=== PATIENT | female | born 1950 | race Caucasian/White ===

== ENCOUNTER 2017-10-15 16:03 | Observation (INO) ==
[2017-10-15] MEDS ORDERED: Piperacillin/Tazobactam 3.375 GM in D5% in Water (Mini-Bag+) 100 ML IVPB ONE (21:35)
--- NOTE | 2017-10-15 21:38 | Emergency Department Note ---
Disposition Clinical Impression: Cellulitis Qualifiers: Site of cellulitis: unspecified site Qualified Code(s): L03.90 - Cellulitis, unspecified Disposition: Admitted As Inpatient Condition: Good Referrals: NONE,PCP [Primary Care Provider] - Forms: ED Satisfaction Letter, Work/School Release Time of Disposition: 23:15 General Adult HPI - General Chief complaint: ED General Medical Stated complaint: "cellulitis PCD wants IV antibotics" Time Seen by Provider: 10/15/17 19:29 Source: patient Limitations: no limitations Nursing Notes Reviewed: Yes Vital Signs Reviewed: Yes - History of Present Illness HPI Narrative: Patient presents today as a transfer from primary care for admission for cellulitis. Patient has diabetes and has been dealing with chronic leg wounds that she has not followed up with podiatry for several years. Patient has a leg wrap on that has been on for 2 weeks without change. The patient states that she does not like going to the doctor and does not like being in the hospital. Patient states that her doctor pleaded with her to come today. Initial small walking in the room is of possible Pseudomonas infection. The patient's legs are wrapped and shows significant skin breakdown as well as concern for cellulitis. Patient will receive blood work as well as broad- spectrum antibiotics and admission to the hospital. Patient states that she has diabetes and does not experience any pain in her feet. There are no fevers or chills or chest pain or shortness of breath or nausea or vomiting or upset stomach. Patient does not appear septic at this time. Pain Scale: 8 - Related Data Home Medications Medication Instructions Recorded Confirmed Aspirin Enteric Coated [Aspirin EC] 81 mg PO DAILY 07/20/15 10/15/17 Ezetimibe [Zetia] 10 mg PO DAILY 07/20/15 10/15/17 Insulin ASPART [NovoLOG] 5 - 10 unit SQ TIDAC 07/20/15 10/15/17 SitaGLIPtin [Januvia] 100 mg PO DAILY 07/20/15 10/15/17 Verapamil ER (24 HR) [Calan SR] 240 mg PO BID 07/20/15 10/15/17 Pravastatin Sodium [Pravachol] 20 mg PO HS 12/23/15 10/15/17 Bupropion HCl [Wellbutrin Xl] 300 mg PO DAILY 08/16/16 10/15/17 hydroCHLOROthiazide 12.5 mg PO DAILY 08/16/16 10/15/17 [Hydrochlorothiazide] Albuterol Sulfate [Proair Hfa] 2 puff IH Q4H PRN 10/15/17 10/15/17 Cholecalciferol (D-3) [Vitamin D] 1,000 unit PO DAILY 10/15/17 10/15/17 FLUoxetine HCl [Prozac] 40 mg PO DAILY 10/15/17 10/15/17 Ferrous Sulfate 325 mg PO BID 10/15/17 10/15/17 Furosemide [Lasix] 20 mg PO DAILY 10/15/17 10/15/17 Insulin Glargine,Hum.rec.anlog 50 units SQ HS 10/15/17 10/15/17 [Lantus Solostar] Levothyroxine Sodium [Synthroid] 200 mcg PO QAM 10/15/17 10/15/17 Lisinopril 2.5 mg PO DAILY 10/15/17 10/15/17 Metformin HCl [Glucophage] 1,000 mg PO BID 10/15/17 10/15/17 Allergies Allergy/AdvReac Type Severity Reaction Status Date / Time No Known Allergies Allergy Verified 07/06/15 01:15 Review of Systems: CONSTITUTIONAL: No weight loss, fever, chills, weakness or fatigue. HEENT: Eyes: No visual changes. Ears, Nose, Throat: No hearing loss, difficulty talking or unable to swallow. SKIN: Skin infection CARDIOVASCULAR: No chest pain, chest pressure or chest discomfort. No palpitations or edema. RESPIRATORY: No shortness of breath, cough or sputum. GASTROINTESTINAL: No anorexia, nausea, vomiting or diarrhea. No abdominal pain or blood. GENITOURINARY: No burning on urination or hematuria. NEUROLOGICAL: No headache, dizziness, syncope, paralysis, ataxia, numbness or tingling in the extremities. No change in bowel or bladder control. MUSCULOSKELETAL: No muscle pain, back pain, joint pain or stiffness. Past Medical History - Past Medical History Medical history: Reports: arthritis, CHF, COPD, diabetes, hyperlipidemia, hypertension, thyroid disease, other Surgical history: Reports: orthopedic, other, thyroidectomy Psychiatric history: Reports: anxiety, depression BOOM MASTER history: Reports: no BOOM MASTER history - Social History Smoking Status: Former smoker Smokeless Tobacco Status: No Alcohol use: Reports: none Drug use: Reports: none Physical Exam General: Well appearing, nontoxic, no acute distress Head: Normocephalic Atraumatic Eyes: PERRL, EOMI ENT: Airway patent, no stridor Neck: supple, no meningismus Chest: Lungs clear to auscultation bilateral Cardiac: Regular rate and rhythm, no murmurs, rubs or gallops Abdomen: soft, nontender, nondistended; no guarding, rebound, or tenderness to percussion Neuro: Alert and Oriented to person, place, and time; No focal deficit, CN 2-12 symmetric and intact Extremities patient has bilateral chronic wounds. Wounds are wrapped with bandages that have been on place for 2 weeks. Purulent smell. Dressings removed showing left side with chronic skin changes and mild sedation of the skin with significant dry flaking and vascular changes. Right leg with significant erythema and skin breakdown with purulent smell. Right leg with more significant skin breakdown in the left and there is underlying dermis exposed. Does not extend any further past the superficial dermis. Patient has no tenderness to palpation. Feels decreased sensation bilaterally which she states is chronic. - General Limitations: no limitations General appearance: alert, in no apparent distress Course - Reevaluation(s) Reevaluation #1: Patient has mildly elevated white count. No elevated vital signs. Does not meet sepsis criteria. Patient has elevated ESR. Patient has significant infection to the lower extremities patient will likely need prior tree and wound care. - Consultations Consultation #1: Discussed with Dr. Purvis. Patient accepted for admission. Vital Signs Temperature 98.0 F 10/15/17 17:19 Pulse Rate 80 10/15/17 17:19 Respiratory Rate 18 10/15/17 17:19 Blood Pressure 167/84 10/15/17 17:19 O2 Sat by Pulse Oximetry 100 10/15/17 17:19 Temperature 98.0 F 10/15/17 17:19 Pulse Rate 96 10/15/17 22:53 Respiratory Rate 16 10/15/17 22:53 Blood Pressure 136/86 10/15/17 22:53 O2 Sat by Pulse Oximetry 96 10/15/17 22:53 Oxygen Delivery Oxygen Delivery Nasal Cannula Medical Decision Making - Lab Data Result diagrams: 10/15/17 22:08 Lab Results 10/15/17 10/15/17 Range/Units 22:08 22:08 WBC 11.2 H (4.3-11.1) K/mcL RBC 3.71 L (3.82-4.97) M/mcL Hgb 11.0 L (11.5-15.4) g/dL Hct 36.2 (35.3-44.9) % MCV 97.6 (83.0-100.0) fL MCH 29.6 (28.0-33.3) pg MCHC 30.4 L (31.6-35.5) g/dL RDW 14.8 H (11.5-14.5) % Plt Count 275 (140-400) K/mcL MPV 11.9 (9.4-12.4) fL Immature Gran % 0.4 (0-4) % Seg Neutrophils % 66.6 % Lymphocytes % 21.1 % Monocytes % 6.0 % Eosinophils % 5.5 % Basophils % 0.4 % Neutrophils # 7.5 (1.6-8.9) K/mcL Lymphocytes # 2.4 (0.6-4.6) K/mcL Monocytes # 0.7 (0.0-1.3) K/mcL Eosinophils # 0.6 (0.0-0.6) K/mcL Basophils # 0.1 (0.0-0.2) K/mcL ESR >= 130 H (0-15) mm/hr - EKG Data EKG #1 EKG attestation: Yes I reviewed and interpreted this EKG. EKG results narrative: EKG shows sinus rhythm with ventricular rate of 67. KS 154. QRS 102. Patient has no significant ST elevations or depressions. Attestation Statement - Attestation Attestation: I, Hussein Watts DO, examined this patient [id number] and my medical decision-making was reviewed with Semaj Chen DO, Resident Physician. I agree with the documented findings, disposition and treatment plan as described except to the extent set forth below. Please see my progress notes for details. 67-year-old female presents to the emergency room at the request of her primary care provider for evaluation of bilateral lower extremity swelling and cellulitis. Patient has been trying to treat the wounds in her right lower extremity for the last several weeks at home. She has not changed the dressings over top of the wounds in that timeframe. Patient currently is denying chest pain shortness of breath headache vision changes nausea vomiting or diarrhea. Patient is not the most reliable with her medical history. Patient is a poorly controlled diabetic with significant peripheral neuropathy. She does not follow with a primary care provider secondary to distressed in the medical profession. Patient denies any new medications. She has not been able to take her lower extremities home as it has been advised. Patient has not changed dressings and lower extremity and greater than 2 weeks. Patient has not been on antibiotics. Vital signs were stable since the time of arrival in the emergency room. Patient is afebrile. Blood pressure medicines and then unremarkable. Screening evaluation completed CBC chemistry ESR and urinalysis secondary to the patient's poor medical history. Patient does not follow-up R comply with most medical treatments. She is a poorly controlled diabetic but does have significant peripheral neuropathy. Lower should appears to be the most of all of this time. Imaging was completed that extremity showing no acute signs of osteomyelitis but there is significant swelling. Patient's chest x-ray was unremarkable. Labs otherwise unremarkable except for mild elevated white cell count significantly elevated ESR. Antibiotic regimen was started here with vancomycin and Zosyn covering for Pseudomonas as well as strep and staph. Patient was advised to be admitted to the hospital at this point. She is comfortable with this plan. Her pain is well controlled here in the emergency room. Physical exam is otherwise unremarkable except for the above stated issues in the right lower cavity. Her lungs are clear heart is regular abdomen is soft nontender nondistended no guarding or rigidity. Patient has normal sensation in the mid thigh but that she has significant decrease in sensation that appears to be chronic. She describes it is normal. Patient does have redness and swelling to the right lower extremity with minimal involvement of portion. Pulses are palpable but difficult to appreciate at the bedside. She does have symmetrical capillary refill of both lower extremities at this time. Patient will be admitted for further evaluation and definitive management appears to be a poor controlled diabetic related foot cellulitis in the right lower extremity. Patient will be seen and evaluated by the appropriate inpatient consults after this evaluation treatment course are completed. Hospitalist was contacted for admission having to except and treat the patient for her presenting symptoms this time. Patient is otherwise stable in no acute distress at time of admission. See detailed documentation of physical exam, medical intervention, medical decision-making, disposition and the resident physician's note. No critical care is applied to the patient during this treatment course and evaluation.
[2017-10-15] MEDS ORDERED: Piperacillin/Tazobactam 3.375 GM in Water for inj. (sterile) 20 ML 20 ML IVPB ONE (21:45)
[2017-10-15] MEDS ORDERED: 0.9 % Sodium Chloride 1,000 ML IVC SCH (21:45)
[2017-10-15] MEDS ORDERED: Vancomycin 1,250 MG in D5% in Water 250 ML IVPB ONE (22:00)
[2017-10-15 22:30] LABS: Basophils # 0.1 K/mcL (0.0-0.2); Basophils % 0.4 %; Eosinophils # 0.6 K/mcL (0.0-0.6); Eosinophils % 5.5 %; Hematocrit 36.2 % (35.3-44.9); Immature Granulocytes % 0.4 % (0-4); Lymphocytes # 2.4 K/mcL (0.6-4.6); Lymphocytes % 21.1 %; Mean Corpuscular HGB Conc 30.4 g/dL (31.6-35.5); Mean Corpuscular Hemoglobin 29.6 pg (28.0-33.3); Mean Corpuscular Volume 97.6 fL (83.0-100.0); Mean Platelet Volume 11.9 fL (9.4-12.4); Monocytes # 0.7 K/mcL (0.0-1.3); Neutrophils # 7.5 K/mcL (1.6-8.9); Platelet Count 275 K/mcL (140-400); Red Blood Count 3.71 M/mcL (3.82-4.97); Red Cell Distribution Width 14.8 % (11.5-14.5); Segmented Neutrophils % 66.6 %
[2017-10-15 23:54] LABS: BUN/Creatinine Ratio 32 (6-26); Blood Urea Nitrogen 32 mg/dL (8-23); Calcium 8.8 mg/dL (8.6-10.3); Carbon Dioxide 28 mEq/L (23-29); Chloride 104 mEq/L (98-107); Glucose 102 mg/dL (70-105); Magnesium 1.9 mg/dL (1.6-2.6); Osmolality,Calculated 295 (280-300); Phosphorous 3.1 mg/dL (2.7-4.5); Potassium 4.1 mEq/L (3.5-5.1); Sodium 139 mEq/L (136-145); eGFR For African Americans > 60 (> 60); eGFR For Non-African Americans 56 (> 60)
--- NOTE | 2017-10-16 00:15 | Internal Med History&Physical ---
<Monroe Baer - Last Filed: 10/16/17 02:07> Date of Encounter: 10/16/17 Time of Encounter: 00:05 Assessment and Plan (1) Cellulitis Current visit: Yes Status: Acute Mild leukocytosis, but otherwise no signs of sepsis Zosyn and vanc started in the ED Will continue antibiotic therapy Qualifiers: Site of cellulitis: extremity Site of cellulitis of extremity: lower extremity Laterality: unspecified laterality Qualified Code(s): L03.119 - Cellulitis of unspecified part of limb (2) Leukocytosis Current visit: Yes Status: Acute 11.2 Will monitor Qualifiers: Leukocytosis type: unspecified Qualified Code(s): D72.829 - Elevated white blood cell count, unspecified (3) CKD (chronic kidney disease) stage 3, GFR 30-59 ml/min Current visit: Yes Status: Chronic eGFR 56 Will monitor Avoid nephrotoxins if possible (4) DM type 2 (diabetes mellitus, type 2) Current visit: Yes Status: Chronic Controlled Continue home basal insulin and low dose SSI Qualifiers: Diabetes mellitus complication status: with kidney complications Diabetes mellitus complication detail: with chronic kidney disease Diabetes mellitus nursing home insulin use: with nursing home use Chronic kidney disease stage: stage 3 (moderate) Qualified Code(s): E11.22 - Type 2 diabetes mellitus with diabetic chronic kidney disease; N18.3 - Chronic kidney disease, stage 3 ( moderate); Z79.4 - [facility] (current) use of insulin (5) Hypertension Current visit: Yes Status: Chronic BP controlled Continue home BP medications Qualifiers: Hypertension type: essential hypertension Qualified Code(s): I10 - Essential (primary) hypertension (6) Hypothyroid Current visit: No Status: Chronic Continue home levothyroxine Qualifiers: Hypothyroidism type: acquired Qualified Code(s): E03.9 - Hypothyroidism, unspecified (7) DVT prophylaxis Current visit: Yes Status: Acute Heparin subq q12h Internal Medicine - H&P: HPI Chief complaint: LE Cellulitis Admitted From: Home Plans for Post Hospital Care: Home History of present illness: Ms. Awad is a 67 year old female who presents for LE cellulitis. Patient states that her lower extremities have "been in bad shape" for years, and that they have worsened in the last few weeks. She complains of pruritus in that time , but denies pain. Her daughter has noted purulence and has been the one to change the dressing on her legs. The last time this happened, however, was at least a week ago. The daughter also gave her mother 5 days of antibiotics that she had left over. The patient presented to her PCP (Cheikh Nails) today for routine checkup and refills, and when he saw her legs, he recommended she report to the ER. The patient additionally reports "flu symptoms," including fever, chills, and a productive cough, though these symptoms stopped a week ago. Her SOB is at its baseline for her COPD. Past Med Surg Social Fam HX - Past Medical History Medical history: arthritis, CHF, COPD, diabetes, hyperlipidemia, hypertension, thyroid disease, other Psychiatric history: anxiety, depression - Past Surgical History Surgical History: orthopedic, other, thyroidectomy - Social History Smoking Status: Former smoker Smokeless Tobacco Status: No Alcohol use: none Drug use: none - Family History Mother Adopted: No Family Member Ethnicity: Non- Living Status: Hx Family Cardiac Disorders: Yes Hx Family Respiratory Disorders: Yes Hx Family Cancer: No Hx Family GI Disorders: No Hx Family Endocrine Disorder: Yes (DM) Hx Family Neuromuscular Disorders: No Hx Family Neurologic Disorders: No Hx Family HEENT Disorders: No Hx Family Autoimmune Disorders: No Father Family Member Ethnicity: Non- Living Status: Hx Family Cardiac Disorders: Yes Hx Family Respiratory Disorders: No Hx Family Cancer: Yes (prostate) Hx Family GI Disorders: No Hx Family Endocrine Disorder: No Hx Family Neuromuscular Disorders: No Hx Family Neurologic Disorders: No Hx Family HEENT Disorders: No Hx Family Autoimmune Disorders: No Internal Medicine - H&P: Meds Aspirin Enteric Coated [Aspirin EC] 81 mg PO DAILY 07/20/15 [History] Ezetimibe [Zetia] 10 mg PO DAILY 07/20/15 [History] Insulin ASPART [NovoLOG] 5 - 10 unit SQ TIDAC 07/20/15 [History] SitaGLIPtin [Januvia] 100 mg PO DAILY 07/20/15 [History] Verapamil ER (24 HR) [Calan SR] 240 mg PO BID 07/20/15 [History] Pravastatin Sodium [Pravachol] 20 mg PO HS 12/23/15 [History] Bupropion HCl [Wellbutrin Xl] 300 mg PO DAILY 08/16/16 [History] hydroCHLOROthiazide [Hydrochlorothiazide] 12.5 mg PO DAILY 08/16/16 [History] Albuterol Sulfate [Proair Hfa] 2 puff IH Q4H PRN 10/15/17 [History] Cholecalciferol (D-3) [Vitamin D] 1,000 unit PO DAILY 10/15/17 [History] FLUoxetine HCl [Prozac] 40 mg PO DAILY 10/15/17 [History] Ferrous Sulfate 325 mg PO BID 10/15/17 [History] Furosemide [Lasix] 20 mg PO DAILY 10/15/17 [History] Insulin Glargine,Hum.rec.anlog [Lantus Solostar] 50 units SQ HS 10/15/17 [ History] Levothyroxine Sodium [Synthroid] 200 mcg PO QAM 10/15/17 [History] Lisinopril 2.5 mg PO DAILY 10/15/17 [History] Metformin HCl [Glucophage] 1,000 mg PO BID 10/15/17 [History] 3 Allergy/AdvReac Type Severity Reaction Status Date / Time No Known Allergies Allergy Verified 07/06/15 01:15 All Systems PM: A 10-system review of systems was performed and is negative for pertinent findings except as documented above in the HPI. Review of systems: as per HPI - Constitutional Vitals: Temp Pulse Resp BP Pulse Ox 98.8 F 72 16 127/47 95 10/15/17 23:41 10/15/17 23:41 10/15/17 23:58 10/15/17 23:58 10/15/17 23:41 General appearance: Present: cooperative, A&O X 3, morbidly obese, pleasant, obese, answers questions appropriately - Head Head exam: Present: atraumatic, normal inspection, normocephalic - ENT ENT exam: Present: mucous membranes moist - Neck Neck exam general surgery: Present: trachea midline - Respiratory Respiratory exam: Present: decreased breath sounds, wheezes (scattered). Absent : accessory muscle use, respiratory distress - Cardiovascular Cardiovascular exam: Present: RRR, +S1, +S2 - GI/Abdominal GI/Abdominal exam: Present: soft, no peritoneal signs. Absent: tenderness - Extremities Exam Extremities exam: Present: radial pulses palpable and symmetrical. Absent: tenderness Additional comments: pruritus - Psychiatric Psychiatric exam: Present: normal affect, normal mood. Absent: agitated, anxious - Skin Additional comments: intense erythema of R > L LEs purulence of R LE purulent odor noted Internal Med - H&P Results - Labs CBC & Chem 7: 10/15/17 22:08 10/15/17 22:08 <Sola Purvis - Last Filed: 10/16/17 06:09> Date of Encounter: 10/16/17 Internal Medicine - H&P: HPI History of present illness: Ms. Aawd is a 67 year old female All Systems PM: A 10-system review of systems was performed and is negative for pertinent findings except as documented above in the HPI. - Constitutional Vitals: Temp Pulse Resp BP Pulse Ox 98.0 F 59 16 156/72 98 10/16/17 03:36 10/16/17 03:36 10/16/17 03:36 10/16/17 03:36 10/16/17 03:36 Internal Med - H&P Results - Labs CBC & Chem 7: 10/16/17 04:07 10/16/17 04:07 Labs: Short CBC 10/16/17 Range/Units 04:07 WBC 10.3 (4.3-11.1) K/mcL Hgb 10.9 L (11.5-15.4) g/dL Hct 36.1 (35.3-44.9) % Plt Count 269 (140-400) K/mcL Neutrophils # 7.2 (1.6-8.9) K/mcL BMP 10/16/17 04:07 Sodium 139 Potassium 4.0 Chloride 107 Carbon Dioxide 28 BUN 28 H Creatinine 0.93 Glucose 76 Calcium 8.3 L - Attending Attestation I have seen and examined the patient independently. I have discussed with resident physician Dr. Baer regarding the management plan. Agree with the documentation.
[2017-10-16] MEDS ORDERED: Naloxone 0.4 MG/ML INJ IVP PRN (02:16)
[2017-10-16] MEDS ORDERED: Ondansetron ODT 4 MG TAB.RAPDIS SL PRN (02:23)
[2017-10-16] MEDS ORDERED: Dextrose Gel 15 GM/37.5 ML TUBE PO PRN ×2 (02:53)
[2017-10-16] MEDS ORDERED: D5% in Water 1,000 ML IVC PRN (02:53)
[2017-10-16] MEDS ORDERED: *HR* Dextrose 50 % in Water (Syg) 50 ML SYRINGE IVP PRN (02:53)
[2017-10-16] MEDS ORDERED: Vancomycin 1,750 MG in D5% in Water 250 ML IVPB SCH (03:00)
[2017-10-16 04:55] LABS: Basophils % 0.3 %; Eosinophils # 0.6 K/mcL (0.0-0.6); Hematocrit 36.1 % (35.3-44.9); Hemoglobin 10.9 g/dL (11.5-15.4); Immature Granulocytes % 0.4 % (0-4); Lymphocytes # 1.7 K/mcL (0.6-4.6); Lymphocytes % 16.7 %; Mean Corpuscular HGB Conc 30.2 g/dL (31.6-35.5); Mean Corpuscular Hemoglobin 29.4 pg (28.0-33.3); Mean Corpuscular Volume 97.3 fL (83.0-100.0); Mean Platelet Volume 11.7 fL (9.4-12.4); Monocytes # 0.7 K/mcL (0.0-1.3); Monocytes % 6.8 %; Neutrophils # 7.2 K/mcL (1.6-8.9); Platelet Count 269 K/mcL (140-400); Red Blood Count 3.71 M/mcL (3.82-4.97); Red Cell Distribution Width 14.7 % (11.5-14.5); Segmented Neutrophils % 69.8 %
[2017-10-16] MEDS: *HR* Heparin 5,000 UNIT/ML VIAL SQ SCH ×2 (05:16→17:57)
[2017-10-16 05:18] LABS: BUN/Creatinine Ratio 30 (6-26); Blood Urea Nitrogen 28 mg/dL (8-23); Calcium 8.3 mg/dL (8.6-10.3); Carbon Dioxide 28 mEq/L (23-29); Chloride 107 mEq/L (98-107); Glucose 76 mg/dL (70-105); Osmolality,Calculated 292 (280-300); Sodium 139 mEq/L (136-145); eGFR For African Americans > 60 (> 60); eGFR For Non-African Americans 60 (> 60)
[2017-10-16] MEDS ORDERED: Piperacillin/Tazobactam 2.25 GM in D5% in Water (Mini-Bag+) 100 ML IVPB SCH (08:00)
--- NOTE | 2017-10-16 08:17 | Electrocardiograph Report ---
[address] [address] Test Date: 2017-10-15 Pat Name: Cydney Awda Department: 104 Room: 3A37 Gender: F Apartment Locator: : [id number] Requested By: Rainer Chen Order Number: [id number] Reading MD: Charisse Melo Measurements Intervals [place] Rate: 67 P: 36 ID: [id number] QRS: 45 QRSD: 102 T: 59 QT: 432 QTc: 447 Interpretive Statements SINUS RHYTHM Electronically Signed On 10-16-2017 8:15:34 EST by Charisse Melo
[2017-10-16] MEDS: Insulin LISPRO 300 UNITS/3 ML VIAL SQ SCH ×3 (08:25→17:08)
[2017-10-16] MEDS: Piperacillin/Tazobactam 3.375 GM/200 ML BAG IVPB SCH ×2 (08:33→17:08)
[2017-10-16] MEDS: BuPROPion XL (24 HR) 150 MG TABLET PO SCH (08:34)
[2017-10-16] MEDS: hydroCHLOROthiazide 25 MG TABLET PO SCH (08:35)
[2017-10-16] MEDS: Verapamil ER (24 HR) 240 MG TABLET.ER PO SCH ×2 (08:35→21:45)
[2017-10-16] MEDS: FLUoxetine 20 MG CAPSULE PO SCH (08:35)
[2017-10-16] MEDS: Furosemide 20 MG TABLET PO SCH (08:36)
[2017-10-16] MEDS: Aspirin Enteric Coated 81 MG Tablet PO SCH (08:36)
--- NOTE | 2017-10-16 10:40 | Internal Med Progress Note ---
<YanivBrent - Last Filed: 10/16/17 15:02> Date of Encounter: 10/16/17 Time of Encounter: 10:38 - Assessment and plan (1) Venous ulcers of both lower extremities Current Visit: No Status: Chronic Assessment and plan: Continue patient on broad spectrum antibiotics Vanc, Zosyn until cultures finalize She shows no systemic signs of infection; no white count, fever, tachycardia Consult wound care, appreciate management Will order MICHELLE as she may have vascular compromise PT/OT/SS consult (2) DM type 2 (diabetes mellitus, type 2) Current Visit: Yes Status: Chronic Assessment and plan: Likely contributing to her ulcers bilaterally Sugars well controlled during admission, will continue Levemir at 50 units HS ( home dose), and SSI Qualifiers: Diabetes mellitus complication status: with kidney complications Diabetes mellitus complication detail: with chronic kidney disease 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 Chronic kidney disease stage: stage 3 (moderate) Qualified Code(s): E11.22 - Type 2 diabetes mellitus with diabetic chronic kidney disease; N18.3 - Chronic kidney disease, stage 3 ( moderate); Z79.4 - skilled nursing (current) use of insulin (3) CKD (chronic kidney disease) stage 3, GFR 30-59 ml/min Current Visit: Yes Status: Chronic Assessment and plan: Cr currently at baseline and stable from yesterday Will continue to monitor Cr, electrolytes and avoid nephrotoxic agents (4) Hypertension Current Visit: Yes Status: Chronic Assessment and plan: Blood pressures stable today Continue home HCTZ, Lisinopril Qualifiers: Hypertension type: essential hypertension Qualified Code(s): I10 - Essential (primary) hypertension (5) Anemia Current Visit: No Status: Acute Assessment and plan: Hb stable at 10.9, near her baseline Likely secondary to chronic diseases Qualifiers: Anemia type: unspecified type Qualified Code(s): D64.9 - Anemia, unspecified (6) Hypothyroid Current Visit: No Status: Chronic Assessment and plan: Continue home Synthroid dose Qualifiers: Hypothyroidism type: acquired Qualified Code(s): E03.9 - Hypothyroidism, unspecified (7) DVT prophylaxis Current Visit: Yes Status: Acute Assessment and plan: Heparin 5000 units BID - Subjective Interval history: Pt seen and examined. She has no complaints of pain, shortness of breath, nausea , vomiting or diarrhea. She states her legs are a chronic issue and she previously saw wound care but no longer is. She lives at home by herself and denies any falls. - Constitutional Vitals: Temp Pulse Resp BP Pulse Ox 97.4 F L 69 18 154/84 95 10/16/17 07:57 10/16/17 07:57 10/16/17 07:57 10/16/17 07:57 10/16/17 07:57 General appearance: Present: cooperative, A&O X 3, morbidly obese, pleasant, obese, answers questions appropriately - Head Head exam: Present: atraumatic, normocephalic - Eye Eye exam: Present: PERRL, conjuntiva pink, sclera anicteric - Neck Neck exam general surgery: Present: supple, trachea midline. Absent: lymphadenopathy - Respiratory Respiratory exam: Present: CTAB. Absent: accessory muscle use, rales, rhonchi, wheezes - Cardiovascular Cardiovascular exam: Present: RRR, +S1, +S2. Absent: diastolic murmur, gallop, rubs, systolic murmur - GI/Abdominal GI/Abdominal exam: Present: normal bowel sounds, soft, no peritoneal signs. Absent: distended, tenderness - Extremities Exam Extremities exam: Present: warm, radial pulses palpable and symmetrical. Absent : calf tenderness, cyanotic, pedal edema Additional comments: purulent erythematous lesion bilateral lower extremities - Neurological Exam Neurological exam: Present: alert, CN II-XII intact, oriented X3, no focal deficits. Absent: pronater drift, facial droop, speech deficit - Skin Skin exam: Present: dry, intact Internal Medicine: Result - Labs CBC & Chem 7: 10/16/17 04:07 10/16/17 04:07 Labs: Short CBC 10/16/17 Range/Units 04:07 WBC 10.3 (4.3-11.1) K/mcL Hgb 10.9 L (11.5-15.4) g/dL Hct 36.1 (35.3-44.9) % Plt Count 269 (140-400) K/mcL Neutrophils # 7.2 (1.6-8.9) K/mcL BMP 10/16/17 04:07 Sodium 139 Potassium 4.0 Chloride 107 Carbon Dioxide 28 BUN 28 H Creatinine 0.93 Glucose 76 Calcium 8.3 L Consult Discharge Plan - Plan Referrals: NONE,PCP [Primary Care Provider] - <Rom Bronson - Last Filed: 10/16/17 16:23> Date of Encounter: 10/16/17 - Constitutional Vitals: Temp Pulse Resp BP Pulse Ox 97.9 F 69 18 157/68 92 10/16/17 15:27 10/16/17 15:27 10/16/17 15:27 10/16/17 15:27 10/16/17 15:27 Internal Medicine: Result - Labs CBC & Chem 7: 10/16/17 04:07 10/16/17 04:07 Labs: Short CBC 10/16/17 Range/Units 04:07 WBC 10.3 (4.3-11.1) K/mcL Hgb 10.9 L (11.5-15.4) g/dL Hct 36.1 (35.3-44.9) % Plt Count 269 (140-400) K/mcL Neutrophils # 7.2 (1.6-8.9) K/mcL BMP 10/16/17 04:07 Sodium 139 Potassium 4.0 Chloride 107 Carbon Dioxide 28 BUN 28 H Creatinine 0.93 Glucose 76 Calcium 8.3 L - Attending Attestation I personally interviewed and examined this patient. I agree with the findings, assessment, plan of Dr. Purvis, internal medicine resident. We evaluated this patient together. antibiotics as outlined, pending any potential culture results. She does not appear to be septic. She is improving. Will likely need ongoing aggressive wound care measures. We will repeat ABIs to look for evidence of peripheral vascular disease contributing to this. All else as outlined per note.
[2017-10-16] MEDS ORDERED: Vancomycin 1,250 MG in D5% in Water 250 ML IVPB SCH (11:00)
[2017-10-16] MEDS: Miconazole 2% ointment 114 GM TUBE TP SCH (18:43)
[2017-10-16] MEDS: Insulin DETEMIR 100 UNIT/ML X5UNITS SQ SCH (21:45)
[2017-10-17] MEDS: Piperacillin/Tazobactam 3.375 GM/200 ML BAG IVPB SCH ×3 (00:22→15:56)
[2017-10-17 05:04] LABS: Hemoglobin 10.9 g/dL (11.5-15.4); Red Blood Count 3.75 M/mcL (3.82-4.97)
[2017-10-17 05:05] LABS: Basophils % 0.2 %; Eosinophils # 0.5 K/mcL (0.0-0.6); Eosinophils % 5.7 %; Immature Granulocytes % 0.2 % (0-4); Lymphocytes % 22.2 %; Mean Corpuscular HGB Conc 30.3 g/dL (31.6-35.5); Mean Corpuscular Hemoglobin 29.1 pg (28.0-33.3); Mean Platelet Volume 11.8 fL (9.4-12.4); Monocytes # 0.5 K/mcL (0.0-1.3); Neutrophils # 5.8 K/mcL (1.6-8.9); Platelet Count 287 K/mcL (140-400); Red Cell Distribution Width 14.6 % (11.5-14.5); Segmented Neutrophils % 65.7 %
[2017-10-17] MEDS: Miconazole 2% ointment 114 GM TUBE TP SCH (05:05)
[2017-10-17] MEDS: *HR* Heparin 5,000 UNIT/ML VIAL SQ SCH ×2 (05:18→18:12)
[2017-10-17 05:47] LABS: BUN/Creatinine Ratio 28 (6-26); Blood Urea Nitrogen 30 mg/dL (8-23); Calcium 8.4 mg/dL (8.6-10.3); Carbon Dioxide 24 mEq/L (23-29); Chloride 106 mEq/L (98-107); Glucose 147 mg/dL (70-105); Osmolality,Calculated 295 (280-300); Potassium 3.8 mEq/L (3.5-5.1); Sodium 138 mEq/L (136-145); eGFR For African Americans > 60 (> 60); eGFR For Non-African Americans 51 (> 60)
[2017-10-17] MEDS: Insulin LISPRO 300 UNITS/3 ML VIAL SQ SCH ×3 (07:36→15:55)
--- NOTE | 2017-10-17 09:11 | Internal Med Progress Note ---
<Brent Purvis - Last Filed: 10/17/17 10:26> Date of Encounter: 10/17/17 Time of Encounter: 09:10 - Assessment and plan (1) Venous ulcers of both lower extremities Current Visit: No Status: Chronic Assessment and plan: Continue patient on broad spectrum antibiotics Zosyn as cultures negative so far , Vanc stopped She shows no systemic signs of infection; no white count, fever, tachycardia Consult wound care, appreciate management Awaiting MICHELLE as she may have vascular compromise PT/OT/SS consult as she lives alone (2) COPD (chronic obstructive pulmonary disease) Current Visit: Yes Status: Chronic Assessment and plan: Not currently in exacerbation Continue patient on home dose of Oxygen (2 L) Breathing treatments as needed Qualifiers: Qualified Code(s): J44.9 - Chronic obstructive pulmonary disease, unspecified (3) DM type 2 (diabetes mellitus, type 2) Current Visit: Yes Status: Chronic Assessment and plan: Likely contributing to her ulcers bilaterally Sugars well controlled during admission, will continue Levemir at 50 units HS ( home dose), and SSI Qualifiers: Diabetes mellitus complication status: with kidney complications Diabetes mellitus complication detail: with chronic kidney disease Diabetes mellitus bed bug exterminator insulin use: with bed bug exterminator use Chronic kidney disease stage: stage 3 (moderate) Qualified Code(s): E11.22 - Type 2 diabetes mellitus with diabetic chronic kidney disease; N18.3 - Chronic kidney disease, stage 3 ( moderate); N18.3 - Chronic kidney disease, stage 3 (moderate); Z79.4 - [facility] (current) use of insulin; Z79.4 - [facility] (current) use of insulin; Z79.4 - [facility] (current) use of insulin; Z79.4 - terminologist (current) use of insulin (4) CKD (chronic kidney disease) stage 3, GFR 30-59 ml/min Current Visit: Yes Status: Chronic Assessment and plan: Cr currently at baseline and stable from yesterday Will continue to monitor Cr, electrolytes and avoid nephrotoxic agents (5) Hypertension Current Visit: Yes Status: Chronic Assessment and plan: Blood pressures stable today Continue home HCTZ, Lisinopril Qualifiers: Hypertension type: essential hypertension Qualified Code(s): I10 - Essential (primary) hypertension (6) Anemia Current Visit: No Status: Acute Assessment and plan: Hb stable at 10.9, near her baseline Likely secondary to chronic diseases Qualifiers: Anemia type: unspecified type Qualified Code(s): D64.9 - Anemia, unspecified (7) Hypothyroid Current Visit: No Status: Chronic Assessment and plan: Continue home Synthroid dose Qualifiers: Hypothyroidism type: acquired Qualified Code(s): E03.9 - Hypothyroidism, unspecified (8) DVT prophylaxis Current Visit: Yes Status: Acute Assessment and plan: Heparin 5000 units BID - Subjective Interval history: Pt seen and examined. She has no complaints this morning and denies any pain, shortness of breath, fever, nausea, vomiting, diarrhea. - Constitutional Vitals: Temp Pulse Resp BP Pulse Ox 98.3 F 65 18 122/55 91 10/17/17 06:58 10/17/17 06:58 10/17/17 06:58 10/17/17 06:58 10/17/17 06:58 General appearance: Present: cooperative, A&O X 3, morbidly obese, pleasant, obese, answers questions appropriately - Head Head exam: Present: atraumatic, normocephalic - Eye Eye exam: Present: PERRL, conjuntiva pink, sclera anicteric - Neck Neck exam general surgery: Present: supple, trachea midline. Absent: lymphadenopathy - Respiratory Respiratory exam: Present: CTAB. Absent: accessory muscle use, rales, rhonchi, wheezes - Cardiovascular Cardiovascular exam: Present: RRR, +S1, +S2. Absent: diastolic murmur, gallop, rubs, systolic murmur - GI/Abdominal GI/Abdominal exam: Present: normal bowel sounds, soft, no peritoneal signs. Absent: distended, tenderness - Extremities Exam Extremities exam: Present: tenderness, warm, radial pulses palpable and symmetrical. Absent: calf tenderness, cyanotic, pedal edema Additional comments: erythema and open drainage of lower extremities, wrapped - Neurological Exam Neurological exam: Present: alert, no focal deficits. Absent: facial droop, speech deficit - Skin Skin exam: Present: dry, intact Internal Medicine: Result - Labs CBC & Chem 7: 10/17/17 04:42 10/17/17 04:42 Labs: Short CBC 10/17/17 Range/Units 04:42 WBC 8.9 (4.3-11.1) K/mcL Hgb 10.9 L (11.5-15.4) g/dL Hct 36.0 (35.3-44.9) % Plt Count 287 (140-400) K/mcL Neutrophils # 5.8 (1.6-8.9) K/mcL [facility] 10/17/17 04:42 Sodium 138 Potassium 3.8 Chloride 106 Carbon Dioxide 24 BUN 30 H Creatinine 1.07 Glucose 147 H Calcium 8.4 L Consult Discharge Plan - Plan Referrals: NONE,PCP [Primary Care Provider] - <Rom Bronson - Last Filed: 10/17/17 15:30> Date of Encounter: 10/17/17 - Constitutional Vitals: Temp Pulse Resp BP Pulse Ox 97.8 F 78 18 127/64 91 10/17/17 10:47 10/17/17 10:47 10/17/17 10:47 10/17/17 10:47 10/17/17 10:47 Internal Medicine: Result - Labs CBC & Chem 7: 10/17/17 04:42 10/17/17 04:42 Labs: Short CBC 10/17/17 Range/Units 04:42 WBC 8.9 (4.3-11.1) K/mcL Hgb 10.9 L (11.5-15.4) g/dL Hct 36.0 (35.3-44.9) % Plt Count 287 (140-400) K/mcL Neutrophils # 5.8 (1.6-8.9) K/mcL [facility] 10/17/17 04:42 Sodium 138 Potassium 3.8 Chloride 106 Carbon Dioxide 24 BUN 30 H Creatinine 1.07 Glucose 147 H Calcium 8.4 L - Attending Attestation I personally interviewed and examined this patient. I agree with the findings, assessment, plan of Dr. Purvis, internal medicine resident. We will change to oral Augmentin. Short courses of not entirely convinced she has an acute infection. ABIs are pending. Patient will need extensive wound care as an outpatient. All else as outlined above.
[2017-10-17] MEDS: BuPROPion XL (24 HR) 150 MG TABLET PO SCH (09:41)
[2017-10-17] MEDS: hydroCHLOROthiazide 25 MG TABLET PO SCH (09:41)
[2017-10-17] MEDS: Aspirin Enteric Coated 81 MG Tablet PO SCH (09:41)
[2017-10-17] MEDS: Furosemide 20 MG TABLET PO SCH (09:41)
[2017-10-17] MEDS: Verapamil ER (24 HR) 240 MG TABLET.ER PO SCH ×2 (09:41→21:02)
[2017-10-17] MEDS: FLUoxetine 20 MG CAPSULE PO SCH (09:42)
[2017-10-17] MEDS ORDERED: Vancomycin 1,750 MG in D5% in Water 500 ML IVPB SCH (11:00)
[2017-10-17] MEDS ORDERED: Aminoglycoside Consult 1 EACH MC ONE (16:39)
[2017-10-17] MEDS: Insulin DETEMIR 100 UNIT/ML X5UNITS SQ SCH (21:02)
[2017-10-18] MEDS: Piperacillin/Tazobactam 3.375 GM/200 ML BAG IVPB SCH ×2 (01:14→09:11)
[2017-10-18] MEDS: *HR* Heparin 5,000 UNIT/ML VIAL SQ SCH (05:02)
[2017-10-18 05:51] LABS: Basophils % 0.4 %; Eosinophils # 0.7 K/mcL (0.0-0.6); Hemoglobin 9.7 g/dL (11.5-15.4); Immature Granulocytes % 0.1 % (0-4); Lymphocytes # 1.8 K/mcL (0.6-4.6); Lymphocytes % 22.2 %; Mean Corpuscular HGB Conc 30.3 g/dL (31.6-35.5); Mean Corpuscular Hemoglobin 29.3 pg (28.0-33.3); Mean Corpuscular Volume 96.7 fL (83.0-100.0); Mean Platelet Volume 11.8 fL (9.4-12.4); Monocytes # 0.6 K/mcL (0.0-1.3); Monocytes % 7.5 %; Neutrophils # 4.9 K/mcL (1.6-8.9); Platelet Count 238 K/mcL (140-400); Red Blood Count 3.31 M/mcL (3.82-4.97); Segmented Neutrophils % 60.8 %
[2017-10-18 06:28] LABS: BUN/Creatinine Ratio 27 (6-26); Blood Urea Nitrogen 27 mg/dL (8-23); Calcium 8.4 mg/dL (8.6-10.3); Carbon Dioxide 28 mEq/L (23-29); Chloride 106 mEq/L (98-107); Glucose 101 mg/dL (70-105); Osmolality,Calculated 295 (280-300); Potassium 3.7 mEq/L (3.5-5.1); Sodium 140 mEq/L (136-145); eGFR For African Americans > 60 (> 60); eGFR For Non-African Americans 54 (> 60)
[2017-10-18] MEDS: Insulin LISPRO 300 UNITS/3 ML VIAL SQ SCH (09:10)
[2017-10-18] MEDS: BuPROPion XL (24 HR) 150 MG TABLET PO SCH (09:12)
[2017-10-18] MEDS: hydroCHLOROthiazide 25 MG TABLET PO SCH (09:12)
[2017-10-18] MEDS: Verapamil ER (24 HR) 240 MG TABLET.ER PO SCH (09:12)
[2017-10-18] MEDS: FLUoxetine 20 MG CAPSULE PO SCH (09:12)
[2017-10-18] MEDS: Furosemide 20 MG TABLET PO SCH (09:13)
[2017-10-18] MEDS: Aspirin Enteric Coated 81 MG Tablet PO SCH (09:13)
[2017-10-18] MEDS: Miconazole 2% ointment 114 GM TUBE TP SCH (09:13)
--- NOTE | 2017-10-18 10:32 | Discharge Summary ---
<Brent Purvis - Last Filed: 10/18/17 14:21> Date of Encounter: 10/18/17 Time of Encounter: 10:29 - Discharge Diagnosis (1) Venous ulcers of both lower extremities Priority: Primary Status: Chronic (2) COPD (chronic obstructive pulmonary disease) Priority: Secondary Status: Chronic Qualifiers: Qualified Code(s): J44.9 - Chronic obstructive pulmonary disease, unspecified (3) DM type 2 (diabetes mellitus, type 2) Priority: Secondary Status: Chronic Qualifiers: Diabetes mellitus complication status: with kidney complications Diabetes mellitus complication detail: with chronic kidney disease Diabetes mellitus exterminator termite insulin use: with senior living use Chronic kidney disease stage: stage 3 (moderate) Qualified Code(s): E11.22 - Type 2 diabetes mellitus with diabetic chronic kidney disease; N18.3 - Chronic kidney disease, stage 3 ( moderate); N18.3 - Chronic kidney disease, stage 3 (moderate); Z79.4 - intermediate accountant (current) use of insulin; Z79.4 - intermediate accountant (current) use of insulin; Z79.4 - intermediate accountant (current) use of insulin; Z79.4 - detention (current) use of insulin (4) CKD (chronic kidney disease) stage 3, GFR 30-59 ml/min Priority: Secondary Status: Chronic (5) Hypertension Priority: Secondary Status: Chronic Qualifiers: Hypertension type: essential hypertension Qualified Code(s): I10 - Essential (primary) hypertension (6) Anemia Priority: Secondary Status: Acute Qualifiers: Anemia type: unspecified type Qualified Code(s): D64.9 - Anemia, unspecified (7) Hypothyroid Priority: Secondary Status: Chronic Qualifiers: Hypothyroidism type: acquired Qualified Code(s): E03.9 - Hypothyroidism, unspecified (8) DVT prophylaxis Priority: Secondary Status: Acute - Discharge Medications Prescriptions: Miconazole 2% ointment [Aloe [place] Antifungal Ointment] 1 appl TP DAILY #1 tube Sulfamethoxazole/Trimeth DS [Bactrim DS] 1 each PO BID #20 tablet Home Medications: Aspirin Enteric Coated [Aspirin EC] 81 mg PO DAILY 07/20/15 [History] Ezetimibe [Zetia] 10 mg PO DAILY 07/20/15 [History] Insulin ASPART [NovoLOG] 5 - 10 unit SQ TIDAC 07/20/15 [History] SitaGLIPtin [Januvia] 100 mg PO DAILY 07/20/15 [History] Verapamil ER (24 HR) [Calan SR] 240 mg PO BID 07/20/15 [History] Pravastatin Sodium [Pravachol] 20 mg PO HS 12/23/15 [History] Bupropion HCl [Wellbutrin Xl] 300 mg PO DAILY 08/16/16 [History] hydroCHLOROthiazide [Hydrochlorothiazide] 12.5 mg PO DAILY 08/16/16 [History] Albuterol Sulfate [Proair Hfa] 2 puff IH Q4H PRN 10/15/17 [History] Cholecalciferol (D-3) [Vitamin D] 1,000 unit PO DAILY 10/15/17 [History] FLUoxetine HCl [Prozac] 40 mg PO DAILY 10/15/17 [History] Ferrous Sulfate 325 mg PO BID 10/15/17 [History] Furosemide [Lasix] 20 mg PO DAILY 10/15/17 [History] Insulin Glargine,Hum.rec.anlog [Lantus Solostar] 50 units SQ HS 10/15/17 [ History] Levothyroxine Sodium [Synthroid] 200 mcg PO QAM 10/15/17 [History] Lisinopril 2.5 mg PO DAILY 10/15/17 [History] Metformin HCl [Glucophage] 1,000 mg PO BID 10/15/17 [History] Miconazole 2% ointment [Aloe [place] Antifungal Ointment] 1 appl TP DAILY #1 tube 10/18/17 [Rx] Sulfamethoxazole/Trimeth DS [Bactrim DS] 1 each PO BID #20 tablet 10/18/17 [Rx] Allergies/Adverse Reactions: 3 Allergy/AdvReac Type Severity Reaction Status Date / Time No Known Allergies Allergy Verified 07/06/15 01:15 Procedures/tests Complete & Pending: Procedures Performed prior 72 hours Category Date Time Status EV ankle brachial index BI Routine Y 10/17/17 15:03 Completed Date of admission: 10/15/17 23:14 Primary care physician: PCP NONE Consults: 10/16/17 00:34 Consult to Nutrition [CONS] Routine Comment: Consulting Provider: NUTRITION Reason for Dietary Consult: MST Score 10/16/17 02:29 Consult to Wound Care [CONS] Routine Reason for Consult: b/l LE cellulitis Call Completed: No 10/16/17 15:04 Consult to Occupational Therapy [CONS] Routine Comment: Evaluate, develop and implement POC Reason for Consult: lower extremity cellulitis, may need home health/rehab upon DC Consult to Physical Therapy [CONS] Routine Comment: Evaluate, develop and implement POC Reason for Consult: lower extremity cellulitis, may need home health/rehab upon DC Consult to Flight Communications Specialist [CONS] Routine Reason for SW Consult: lower extremity cellulitis, may need home health/ rehab upon DC Discharging clinician: Brent Purvis Anticipated date of discharge: 10/18/17 - Patient Status Disposition: Home Health Service Condition: Good Functional capacity at discharge: independent ambulation Overall status at discharge: patient is progressing back to baseline - Discharge Instructions Instructions: Amoxicillin (By mouth), Miconazole (On the skin), Cellulitis (DC) Follow Up With: WoundCare,Clinic [Other] - 10/24/17 1:45 pm Neelam West CNP [Advanced Practice Nurse] - 10/21/17 9:45 am (Please arrive 30 min. early to fill out paperwork. You will need to bring your ins. card, photo id and any medications you are on. If you need to cancel, please give a 24 hour notice. Thank you.) Additional Instructions: Please establish with a PCP Rosalie West CNP Please follow up with [facility] Take Bactrim for 10 days and use topical antifungals - Diet and Activity Activity: increase activity as tolerated Diet: advance to your usual diet Hospital course: Ms. Awad is a 67 year old female who presented with cellulitis of both lower extremities. She states that she has had these for years but have worsened in the last few weeks. She lives at home with her daughter who helps change her dressing and deal with wound care. She was started on Vancomycin and Zosyn for broad coverage and blood and wound cultures were collected. She showed no signs of systemic infection as she did not have white count, fever, or tachycardia during her stay. Our wound care was consulted and assisted in changing her dressing and applying topical antifungals. Her wound cultures did eventually grow Stenotrophomonas Maltophilia sensitive to Bactrim. She did receive 4 days of Zosyn and will be given an additional 10 days of Bactrim along with topical anti-fungals. She will be evaluated by PT/OT and plan to go home with home health. She prefers to follow with [facility]. - Time Spent with Patient Total time spent providing and/or coordinating discharge services: Greater than 30 minutes - Constitutional Vitals: Temp Pulse Resp BP Pulse Ox 97.4 F L 71 16 127/62 95 10/18/17 07:06 10/18/17 07:06 10/18/17 07:06 10/18/17 07:06 10/18/17 07:06 General appearance: Present: cooperative, A&O X 3, morbidly obese, pleasant, obese, answers questions appropriately - Head Head exam: Present: atraumatic, normocephalic - Eye Eye exam: Present: PERRL, conjuntiva pink, sclera anicteric - Neck Neck exam general surgery: Present: supple, trachea midline. Absent: lymphadenopathy - Respiratory Respiratory exam: Present: CTAB. Absent: accessory muscle use, rales, rhonchi, wheezes - Cardiovascular Cardiovascular exam: Present: RRR, +S1, +S2. Absent: diastolic murmur, gallop, rubs, systolic murmur - GI/Abdominal GI/Abdominal exam: Present: normal bowel sounds, soft, no peritoneal signs. Absent: distended, tenderness - Extremities Exam Extremities exam: Present: warm, radial pulses palpable and symmetrical. Absent : calf tenderness, cyanotic, pedal edema Additional comments: lower extremities wrapped - Neurological Exam Neurological exam: Present: alert, no focal deficits. Absent: facial droop, speech deficit - Skin Skin exam: Present: dry, intact <Rom Bronson R - Last Filed: 10/18/17 14:29> Date of Encounter: 10/18/17 Procedures/tests Complete & Pending: Procedures Performed prior 72 hours Category Date Time Status EV ankle brachial index BI Routine Y 10/17/17 15:03 Completed Date of admission: 10/15/17 23:14 Primary care physician: PCP NONE Consults: 10/16/17 00:34 Consult to Nutrition [CONS] Routine Comment: Consulting Provider: NUTRITION Reason for Dietary Consult: MST Score 10/16/17 02:29 Consult to Wound Care [CONS] Routine Reason for Consult: b/l LE cellulitis Call Completed: No 10/16/17 15:04 Consult to Occupational Therapy [CONS] Routine Comment: Evaluate, develop and implement POC Reason for Consult: lower extremity cellulitis, may need home health/rehab upon DC Consult to Physical Therapy [CONS] Routine Comment: Evaluate, develop and implement POC Reason for Consult: lower extremity cellulitis, may need home health/rehab upon DC Consult to Flight Communications Specialist [CONS] Routine Reason for SW Consult: lower extremity cellulitis, may need home health/ rehab upon DC Hospital course: Ms. Awad is a 67 year old female - Time Spent with Patient Total time spent providing and/or coordinating discharge services: - Constitutional Vitals: Temp Pulse Resp BP Pulse Ox 97.6 F 64 16 119/73 92 10/18/17 12:30 10/18/17 12:30 10/18/17 12:30 10/18/17 12:30 10/18/17 12:30 - Attending Attestation I personally interviewed and examined this patient. I agree with the findings, assessment, and plan of Dr. Purvis, internal medicine resident. Patient is stable for discharge. She will continue on Bactrim for cellulitis. She will need aggressive wound care measures. All healthcare spelled arranged as well as a deal wound care services.
--- NOTE | 2017-10-18 10:35 | Physician Discharge Referral ---
Home Health/Hosp Referral Info Transfer to: Home Health Attending Provider: Dr. Bronson Provider in Charge Post Discharge: PCP - Diagnosis (1) Venous ulcers of both lower extremities Priority: Primary Status: Chronic (2) COPD (chronic obstructive pulmonary disease) Priority: Secondary Status: Chronic (3) DM type 2 (diabetes mellitus, type 2) Priority: Secondary Status: Chronic (4) CKD (chronic kidney disease) stage 3, GFR 30-59 ml/min Priority: Secondary Status: Chronic (5) Hypertension Priority: Secondary Status: Chronic (6) Anemia Priority: Secondary Status: Acute (7) Hypothyroid Priority: Secondary Status: Chronic (8) DVT prophylaxis Priority: Secondary Status: Acute - Respiratory Orders Smoking Cessation: Smoking cessation has been advised. For more information, call the [employer] Tobacco Quit Line at 4-146-VYCW-NOW. - Diet/Nutrition Diet/Nutrition Orders: Cardiac - Activity Activity Orders: Ambulate - Services Needed Following services are medically necessary services: Nursing, Home Health Aide - Transfer Medications Prescriptions: Miconazole 2% ointment [Aloe [place] Antifungal Ointment] 1 appl TP DAILY #1 tube Sulfamethoxazole/Trimeth DS [Bactrim DS] 1 each PO BID #20 tablet Home Medications: Aspirin Enteric Coated [Aspirin EC] 81 mg PO DAILY 07/20/15 [History] Ezetimibe [Zetia] 10 mg PO DAILY 07/20/15 [History] Insulin ASPART [NovoLOG] 5 - 10 unit SQ TIDAC 07/20/15 [History] SitaGLIPtin [Januvia] 100 mg PO DAILY 07/20/15 [History] Verapamil ER (24 HR) [Calan SR] 240 mg PO BID 07/20/15 [History] Pravastatin Sodium [Pravachol] 20 mg PO HS 12/23/15 [History] Bupropion HCl [Wellbutrin Xl] 300 mg PO DAILY 08/16/16 [History] hydroCHLOROthiazide [Hydrochlorothiazide] 12.5 mg PO DAILY 08/16/16 [History] Albuterol Sulfate [Proair Hfa] 2 puff IH Q4H PRN 10/15/17 [History] Cholecalciferol (D-3) [Vitamin D] 1,000 unit PO DAILY 10/15/17 [History] FLUoxetine HCl [Prozac] 40 mg PO DAILY 10/15/17 [History] Ferrous Sulfate 325 mg PO BID 10/15/17 [History] Furosemide [Lasix] 20 mg PO DAILY 10/15/17 [History] Insulin Glargine,Hum.rec.anlog [Lantus Solostar] 50 units SQ HS 10/15/17 [ History] Levothyroxine Sodium [Synthroid] 200 mcg PO QAM 10/15/17 [History] Lisinopril 2.5 mg PO DAILY 10/15/17 [History] Metformin HCl [Glucophage] 1,000 mg PO BID 10/15/17 [History] Miconazole 2% ointment [Aloe [place] Antifungal Ointment] 1 appl TP DAILY #1 tube 10/18/17 [Rx] Sulfamethoxazole/Trimeth DS [Bactrim DS] 1 each PO BID #20 tablet 10/18/17 [Rx] Allergies/Adverse Reactions: 3 Allergy/AdvReac Type Severity Reaction Status Date / Time No Known Allergies Allergy Verified 07/06/15 01:15 Certification: Further, I certify that my clinical findings support that this patient is homebound (i.e. absences from home require considerable and taxing effort and are for medical reasons or christianity services or infrequently or short duration when for other reasons) because: Homebound Reason: Patient requires assistance of a person or device to safely leave home Attestation: My signature below is to certify that this patient is under my care and that I, or nurse practitioner, or a physician's assistant commissioner working with me, has a face-to -face encounter with this patient.
[2017-10-18 12:31] VITALS: BP 119/73
== END 2017-10-18 16:40 | disposition home health service (06) ==
LOC: EMEROO 16:03 → 3ANU 16:03
PROVIDERS: ADMIT Internal Medicine; ATTEND Internal Medicine

== ENCOUNTER 2019-05-13 06:02 | Inpatient (IN) ==
[2019-05-13 06:31] LABS: Basophils % 0.3 %; Eosinophils # 0.2 K/mcL (0.0-0.6); Eosinophils % 1.3 %; Hematocrit 35.2 % (35.3-44.9); Immature Granulocytes % 0.4 % (0-4); Lymphocytes # 2.3 K/mcL (0.6-4.6); Lymphocytes % 16.3 %; Mean Corpuscular HGB Conc 31.3 g/dL (31.6-35.5); Mean Corpuscular Hemoglobin 30.4 pg (28.0-33.3); Mean Corpuscular Volume 97.2 fL (83.0-100.0); Monocytes % 7.1 %; Neutrophils # 10.6 K/mcL (1.6-8.9); Platelet Count 253 K/mcL (140-400); Red Blood Count 3.62 M/mcL (3.82-4.97); Red Cell Distribution Width 14.1 % (11.5-14.5); Segmented Neutrophils % 74.6 %; White Blood Count 14.2 K/mcL (4.3-11.1)
[2019-05-13] MEDS ORDERED: *HR* HYDROcodone/Acet 5/325 mg TABLET PO ONE (06:43)
[2019-05-13 06:51] LABS: Calcium 9.1 mg/dL (8.6-10.3); Potassium 4.3 mEq/L (3.5-5.1)
[2019-05-13] MEDS ORDERED: Piperacillin/Tazobactam 3.375 GM in 0.9 % Sodium Chloride Mini Bag 100 ML IVPB ONE ×2 (06:52→07:14)
[2019-05-13 07:11] LABS: Uric Acid 11.2 mg/dL (2.3-7.6)
[2019-05-13] MEDS ORDERED: Acetaminophen 325 MG TABLET PO PRN (09:47)
[2019-05-13] MEDS ORDERED: Ondansetron 4 MG/2 ML VIAL IVP PRN (09:47)
[2019-05-13] MEDS ORDERED: Naloxone 0.4 MG/ML INJ IVP PRN (09:47)
[2019-05-13] MEDS ORDERED: D5% in Water 1,000 ML IVC PRN (09:56)
[2019-05-13] MEDS ORDERED: *HR* Dextrose 50 % in Water (Syg) 50 ML SYRINGE IVP PRN (09:56)
[2019-05-13] MEDS ORDERED: Dextrose Gel 15 GM/37.5 ML TUBE PO PRN ×2 (09:56)
[2019-05-13] MEDS: *HR* HYDROcodone/Acet 5/325 mg TABLET PO PRN (10:39)
[2019-05-13] MEDS: Insulin LISPRO 300 UNITS/3 ML VIAL SQ SCH ×3 (10:44→20:17)
[2019-05-13 11:05] LABS: Estimated Average Glucose 154 mg/dl
[2019-05-13] MEDS: Cefepime HCl 2,000 MG in Water for inj. (sterile) 20 ML IVP SCH ×2 (11:33→22:39)
[2019-05-13] MEDS: *HR* OxyCODONE Immed Rel 5 MG TABLET PO PRN ×3 (11:49→23:41)
[2019-05-13] MEDS: *HR* Heparin 5,000 UNIT/ML VIAL SQ SCH (17:00)
[2019-05-13] MEDS: Verapamil ER (24 HR) 240 MG TABLET.ER PO SCH (19:30)
[2019-05-13] MEDS: Insulin DETEMIR 100 UNIT/ML X5UNITS SQ SCH (19:30)
[2019-05-14] MEDS: *HR* Heparin 5,000 UNIT/ML VIAL SQ SCH ×2 (05:03→17:46)
[2019-05-14 06:34] LABS: Basophils % 0.3 %; Eosinophils # 0.2 K/mcL (0.0-0.6); Eosinophils % 1.3 %; Hematocrit 34.7 % (35.3-44.9); Hemoglobin 10.8 g/dL (11.5-15.4); Immature Granulocytes % 0.6 % (0-4); Lymphocytes # 1.6 K/mcL (0.6-4.6); Lymphocytes % 10.9 %; Mean Corpuscular HGB Conc 31.1 g/dL (31.6-35.5); Mean Corpuscular Hemoglobin 30.3 pg (28.0-33.3); Mean Corpuscular Volume 97.5 fL (83.0-100.0); Mean Platelet Volume 12.3 fL (9.4-12.4); Monocytes # 1.4 K/mcL (0.0-1.3); Monocytes % 9.5 %; Neutrophils # 11.6 K/mcL (1.6-8.9); Platelet Count 234 K/mcL (140-400); Red Blood Count 3.56 M/mcL (3.82-4.97); Segmented Neutrophils % 77.4 %
[2019-05-14] MEDS: *HR* HYDROcodone/Acet 5/325 mg TABLET PO PRN ×2 (06:49→20:49)
[2019-05-14 06:54] LABS: BUN/Creatinine Ratio 31 (6-26); Blood Urea Nitrogen 29 mg/dL (8-23); Calcium 8.7 mg/dL (8.6-10.3); Carbon Dioxide 26 mEq/L (23-29); Chloride 99 mEq/L (98-107); Glucose 201 mg/dL (70-105); Magnesium 1.9 mg/dL (1.6-2.6); Osmolality,Calculated 292 (280-300); Potassium 4.2 mEq/L (3.5-5.1); Sodium 135 mEq/L (136-145); eGFR For African Americans > 60 (> 60); eGFR For Non-African Americans 58 (> 60)
[2019-05-14] MEDS: Insulin LISPRO 300 UNITS/3 ML VIAL SQ SCH ×4 (08:50→20:52)
[2019-05-14] MEDS: Verapamil ER (24 HR) 240 MG TABLET.ER PO SCH ×2 (08:51→20:49)
[2019-05-14] MEDS: Aspirin Enteric Coated 81 MG Tablet PO SCH (08:51)
[2019-05-14] MEDS: BuPROPion XL (24 HR) 150 MG TABLET PO SCH (08:51)
[2019-05-14] MEDS: FLUoxetine 20 MG CAPSULE PO SCH (08:51)
[2019-05-14] MEDS: Miconazole 2% ointment 141 APPL/141 GM TUBE TP SCH (08:53)
[2019-05-14] MEDS ORDERED: (Ezetimibe [Zetia] 10 MG) PO SCH (09:00)
[2019-05-14] MEDS: *HR* OxyCODONE Immed Rel 5 MG TABLET PO PRN (12:25)
[2019-05-14] MEDS: Cefepime HCl 2,000 MG in Water for inj. (sterile) 20 ML IVP SCH ×2 (12:26→22:46)
[2019-05-14] MEDS: Insulin DETEMIR 100 UNIT/ML X5UNITS SQ SCH (20:54)
[2019-05-15 04:23] LABS: Basophils % 0.2 %; Eosinophils # 0.2 K/mcL (0.0-0.6); Eosinophils % 1.3 %; Hematocrit 32.7 % (35.3-44.9); Hemoglobin 9.9 g/dL (11.5-15.4); Immature Granulocytes % 0.3 % (0-4); Lymphocytes # 1.8 K/mcL (0.6-4.6); Mean Corpuscular HGB Conc 30.3 g/dL (31.6-35.5); Mean Corpuscular Hemoglobin 30.1 pg (28.0-33.3); Mean Corpuscular Volume 99.4 fL (83.0-100.0); Mean Platelet Volume 11.7 fL (9.4-12.4); Monocytes # 1.2 K/mcL (0.0-1.3); Monocytes % 7.8 %; Neutrophils # 11.7 K/mcL (1.6-8.9); Platelet Count 211 K/mcL (140-400); Red Blood Count 3.29 M/mcL (3.82-4.97); Red Cell Distribution Width 13.7 % (11.5-14.5); Segmented Neutrophils % 78.4 %
[2019-05-15 04:42] LABS: Calcium 8.9 mg/dL (8.6-10.3); Potassium 4.3 mEq/L (3.5-5.1)
[2019-05-15] MEDS: *HR* HYDROcodone/Acet 5/325 mg TABLET PO PRN (05:43)
[2019-05-15] MEDS: *HR* Heparin 5,000 UNIT/ML VIAL SQ SCH ×2 (05:43→17:12)
[2019-05-15] MEDS: BuPROPion XL (24 HR) 150 MG TABLET PO SCH (08:08)
[2019-05-15] MEDS: Verapamil ER (24 HR) 240 MG TABLET.ER PO SCH ×2 (08:08→20:57)
[2019-05-15] MEDS: Furosemide 40 MG TABLET PO SCH (08:08)
[2019-05-15] MEDS: FLUoxetine 20 MG CAPSULE PO SCH (08:08)
[2019-05-15] MEDS: Aspirin Enteric Coated 81 MG Tablet PO SCH (08:08)
[2019-05-15] MEDS: Miconazole 2% ointment 141 APPL/141 GM TUBE TP SCH (08:11)
[2019-05-15] MEDS: Insulin LISPRO 300 UNITS/3 ML VIAL SQ SCH ×4 (08:12→21:06)
[2019-05-15] MEDS ORDERED: hydroCHLOROthiazide 25 MG TABLET PO SCH (09:00)
[2019-05-15] MEDS: Cefepime HCl 2,000 MG in Water for inj. (sterile) 20 ML IVP SCH ×2 (12:19→23:08)
[2019-05-15] MEDS: *HR* OxyCODONE Immed Rel 5 MG TABLET PO PRN ×2 (12:20→18:32)
[2019-05-15] MEDS: Insulin DETEMIR 100 UNIT/ML X5UNITS SQ SCH (20:58)
[2019-05-16] MEDS: *HR* OxyCODONE Immed Rel 5 MG TABLET PO PRN ×3 (00:40→17:54)
[2019-05-16] MEDS: *HR* Heparin 5,000 UNIT/ML VIAL SQ SCH ×2 (05:46→17:24)
[2019-05-16 05:52] LABS: Basophils % 0.2 %; Eosinophils # 0.2 K/mcL (0.0-0.6); Eosinophils % 1.3 %; Immature Granulocytes % 0.7 % (0-4); Lymphocytes # 1.6 K/mcL (0.6-4.6); Lymphocytes % 9.8 %; Mean Corpuscular HGB Conc 31.3 g/dL (31.6-35.5); Mean Corpuscular Hemoglobin 30.3 pg (28.0-33.3); Mean Platelet Volume 11.7 fL (9.4-12.4); Monocytes # 1.3 K/mcL (0.0-1.3); Monocytes % 7.6 %; Neutrophils # 13.3 K/mcL (1.6-8.9); Platelet Count 240 K/mcL (140-400); Red Cell Distribution Width 13.8 % (11.5-14.5); Segmented Neutrophils % 80.4 %; White Blood Count 16.5 K/mcL (4.3-11.1)
[2019-05-16 06:12] LABS: Calcium 9.1 mg/dL (8.6-10.3); Potassium 4.2 mEq/L (3.5-5.1)
[2019-05-16] MEDS ORDERED: Aminoglycoside Consult 1 EACH MC ONE (08:52)
[2019-05-16] MEDS: FLUoxetine 20 MG CAPSULE PO SCH (09:22)
[2019-05-16] MEDS: BuPROPion XL (24 HR) 150 MG TABLET PO SCH (09:22)
[2019-05-16] MEDS: Furosemide 40 MG TABLET PO SCH (09:22)
[2019-05-16] MEDS: Insulin LISPRO 300 UNITS/3 ML VIAL SQ SCH ×4 (09:22→21:38)
[2019-05-16] MEDS: Verapamil ER (24 HR) 240 MG TABLET.ER PO SCH ×2 (09:22→21:39)
[2019-05-16] MEDS: Aspirin Enteric Coated 81 MG Tablet PO SCH (09:22)
[2019-05-16] MEDS: Miconazole 2% ointment 141 APPL/141 GM TUBE TP SCH (09:23)
[2019-05-16] MEDS: *HR* HYDROcodone/Acet 5/325 mg TABLET PO PRN (09:34)
[2019-05-16] MEDS ORDERED: 0.9 % Sodium Chloride 1,000 ML IVC SCH (11:00)
[2019-05-16] MEDS: Insulin DETEMIR 100 UNIT/ML X5UNITS SQ SCH ×2 (11:38→21:39)
[2019-05-16] MEDS: Cefepime HCl 2,000 MG in Water for inj. (sterile) 20 ML IVP SCH (11:39)
[2019-05-16 15:11] LABS: Bilirubin,Urine Negative (Negative); Blood,Urine Negative (Negative); Clarity,Urine Clear (Clear); Color,Urine Yellow (Yellow); Glucose,Urine (UA) Normal (Normal); Ketones,Urine Negative (Negative); Leukocyte Esterase,Urine Negative (Negative); Nitrite,Urine Negative (Negative); Protein,Urine Trace mg/dL (Neg-Trace); Specific Gravity,Urine 1.024 (1.010-1.025); Urobilinogen,Urine Normal (Normal)
[2019-05-16] MEDS: Doxycycline 100 MG CAPSULE PO SCH (21:39)
[2019-05-16] MEDS: cephALEXin 500 MG CAPSULE PO SCH (21:39)
[2019-05-17] MEDS: *HR* Heparin 5,000 UNIT/ML VIAL SQ SCH ×2 (04:59→18:48)
[2019-05-17] MEDS: *HR* HYDROcodone/Acet 5/325 mg TABLET PO PRN (04:59)
[2019-05-17 06:32] LABS: Basophils % 0.2 %; Eosinophils # 0.3 K/mcL (0.0-0.6); Eosinophils % 1.9 %; Hematocrit 33.6 % (35.3-44.9); Hemoglobin 10.3 g/dL (11.5-15.4); Immature Granulocytes % 0.7 % (0-4); Lymphocytes # 1.4 K/mcL (0.6-4.6); Lymphocytes % 9.4 %; Mean Corpuscular HGB Conc 30.7 g/dL (31.6-35.5); Mean Corpuscular Hemoglobin 30.1 pg (28.0-33.3); Mean Corpuscular Volume 98.2 fL (83.0-100.0); Mean Platelet Volume 12.4 fL (9.4-12.4); Monocytes # 1.2 K/mcL (0.0-1.3); Monocytes % 8.2 %; Platelet Count 292 K/mcL (140-400); Red Blood Count 3.42 M/mcL (3.82-4.97); Red Cell Distribution Width 13.9 % (11.5-14.5); Segmented Neutrophils % 79.6 %; White Blood Count 15.1 K/mcL (4.3-11.1)
[2019-05-17 06:55] LABS: Calcium 9.5 mg/dL (8.6-10.3)
[2019-05-17] MEDS: Verapamil ER (24 HR) 240 MG TABLET.ER PO SCH ×2 (07:47→21:57)
[2019-05-17] MEDS: Doxycycline 100 MG CAPSULE PO SCH ×2 (07:47→21:57)
[2019-05-17] MEDS: cephALEXin 500 MG CAPSULE PO SCH ×4 (07:47→21:57)
[2019-05-17] MEDS: Insulin DETEMIR 100 UNIT/ML X5UNITS SQ SCH ×2 (07:47→21:58)
[2019-05-17] MEDS: FLUoxetine 20 MG CAPSULE PO SCH (07:47)
[2019-05-17] MEDS: BuPROPion XL (24 HR) 150 MG TABLET PO SCH (07:47)
[2019-05-17] MEDS: Aspirin Enteric Coated 81 MG Tablet PO SCH (07:47)
[2019-05-17] MEDS: Miconazole 2% ointment 141 APPL/141 GM TUBE TP SCH (07:48)
[2019-05-17] MEDS: Insulin LISPRO 300 UNITS/3 ML VIAL SQ SCH ×4 (07:48→21:58)
[2019-05-17] MEDS: *HR* OxyCODONE Immed Rel 5 MG TABLET PO PRN ×2 (07:58→16:19)
[2019-05-18] MEDS: *HR* Heparin 5,000 UNIT/ML VIAL SQ SCH ×2 (06:23→17:37)
[2019-05-18] MEDS: Insulin LISPRO 300 UNITS/3 ML VIAL SQ SCH ×4 (08:32→20:20)
[2019-05-18] MEDS: cephALEXin 500 MG CAPSULE PO SCH ×4 (08:32→20:20)
[2019-05-18] MEDS: Verapamil ER (24 HR) 240 MG TABLET.ER PO SCH ×2 (08:33→20:20)
[2019-05-18] MEDS: BuPROPion XL (24 HR) 150 MG TABLET PO SCH (08:33)
[2019-05-18] MEDS: FLUoxetine 20 MG CAPSULE PO SCH (08:33)
[2019-05-18] MEDS: Doxycycline 100 MG CAPSULE PO SCH ×2 (08:33→20:20)
[2019-05-18] MEDS: Aspirin Enteric Coated 81 MG Tablet PO SCH (08:33)
[2019-05-18] MEDS: Miconazole 2% ointment 141 APPL/141 GM TUBE TP SCH (08:35)
[2019-05-18] MEDS: Insulin DETEMIR 100 UNIT/ML X5UNITS SQ SCH ×2 (08:38→20:19)
[2019-05-18] MEDS: predniSONE 20 MG TABLET PO SCH (11:33)
[2019-05-18] MEDS: Furosemide 20 MG TABLET PO SCH (11:33)
[2019-05-19 05:20] LABS: Basophils % 0.3 %; Eosinophils % 0.2 %; Hematocrit 33.9 % (35.3-44.9); Hemoglobin 10.8 g/dL (11.5-15.4); Immature Granulocytes % 0.6 % (0-4); Lymphocytes # 1.8 K/mcL (0.6-4.6); Lymphocytes % 13.4 %; Mean Corpuscular HGB Conc 31.9 g/dL (31.6-35.5); Mean Corpuscular Hemoglobin 30.7 pg (28.0-33.3); Mean Corpuscular Volume 96.3 fL (83.0-100.0); Mean Platelet Volume 11.8 fL (9.4-12.4); Monocytes # 0.8 K/mcL (0.0-1.3); Monocytes % 6.3 %; Neutrophils # 10.5 K/mcL (1.6-8.9); Platelet Count 310 K/mcL (140-400); Red Blood Count 3.52 M/mcL (3.82-4.97); Red Cell Distribution Width 13.8 % (11.5-14.5); Segmented Neutrophils % 79.2 %; White Blood Count 13.3 K/mcL (4.3-11.1)
[2019-05-19 05:38] LABS: BUN/Creatinine Ratio 57 (6-26); Blood Urea Nitrogen 51 mg/dL (8-23); Calcium 9.6 mg/dL (8.6-10.3); Carbon Dioxide 24 mEq/L (23-29); Chloride 104 mEq/L (98-107); Glucose 166 mg/dL (70-105); Osmolality,Calculated 301 (280-300); Potassium 3.9 mEq/L (3.5-5.1); Sodium 137 mEq/L (136-145); eGFR For African Americans > 60 (> 60); eGFR For Non-African Americans > 60 (> 60)
[2019-05-19] MEDS: *HR* Heparin 5,000 UNIT/ML VIAL SQ SCH ×2 (05:55→16:53)
[2019-05-19] MEDS: *HR* HYDROcodone/Acet 5/325 mg TABLET PO PRN (05:57)
[2019-05-19] MEDS: predniSONE 20 MG TABLET PO SCH (07:39)
[2019-05-19] MEDS: BuPROPion XL (24 HR) 150 MG TABLET PO SCH (07:39)
[2019-05-19] MEDS: FLUoxetine 20 MG CAPSULE PO SCH (07:39)
[2019-05-19] MEDS: Furosemide 20 MG TABLET PO SCH (07:40)
[2019-05-19] MEDS: Miconazole 2% ointment 141 APPL/141 GM TUBE TP SCH (07:40)
[2019-05-19] MEDS: Verapamil ER (24 HR) 240 MG TABLET.ER PO SCH ×2 (07:40→22:30)
[2019-05-19] MEDS: Doxycycline 100 MG CAPSULE PO SCH ×2 (07:40→22:30)
[2019-05-19] MEDS: cephALEXin 500 MG CAPSULE PO SCH ×4 (07:40→22:30)
[2019-05-19] MEDS: Aspirin Enteric Coated 81 MG Tablet PO SCH (07:40)
[2019-05-19] MEDS: Insulin LISPRO 300 UNITS/3 ML VIAL SQ SCH ×4 (07:43→22:31)
[2019-05-19] MEDS: Insulin DETEMIR 100 UNIT/ML X5UNITS SQ SCH ×2 (07:59→22:29)
[2019-05-19] MEDS: *HR* OxyCODONE Immed Rel 5 MG TABLET PO PRN (22:29)
[2019-05-20] MEDS: *HR* Heparin 5,000 UNIT/ML VIAL SQ SCH (06:12)
[2019-05-20 07:18] LABS: Basophils % 0.2 %; Eosinophils # 0.2 K/mcL (0.0-0.6); Eosinophils % 1.5 %; Hematocrit 33.3 % (35.3-44.9); Hemoglobin 10.3 g/dL (11.5-15.4); Immature Granulocytes % 0.7 % (0-4); Lymphocytes # 2.4 K/mcL (0.6-4.6); Lymphocytes % 16.2 %; Mean Corpuscular HGB Conc 30.9 g/dL (31.6-35.5); Mean Corpuscular Hemoglobin 29.7 pg (28.0-33.3); Mean Platelet Volume 11.2 fL (9.4-12.4); Monocytes # 1.2 K/mcL (0.0-1.3); Monocytes % 8.4 %; Neutrophils # 10.7 K/mcL (1.6-8.9); Platelet Count 386 K/mcL (140-400); Red Blood Count 3.47 M/mcL (3.82-4.97); Red Cell Distribution Width 13.9 % (11.5-14.5); White Blood Count 14.6 K/mcL (4.3-11.1)
[2019-05-20 07:42] LABS: BUN/Creatinine Ratio 49 (6-26); Blood Urea Nitrogen 33 mg/dL (8-23); Carbon Dioxide 30 mEq/L (23-29); Chloride 103 mEq/L (98-107); Glucose 81 mg/dL (70-105); Osmolality,Calculated 302 (280-300); Potassium 3.5 mEq/L (3.5-5.1); Sodium 143 mEq/L (136-145); eGFR For African Americans > 60 (> 60); eGFR For Non-African Americans > 60 (> 60)
[2019-05-20] MEDS: Insulin LISPRO 300 UNITS/3 ML VIAL SQ SCH ×2 (08:24→12:10)
[2019-05-20] MEDS: Aspirin Enteric Coated 81 MG Tablet PO SCH (08:51)
[2019-05-20] MEDS: *HR* OxyCODONE Immed Rel 5 MG TABLET PO PRN (08:51)
[2019-05-20] MEDS: Verapamil ER (24 HR) 240 MG TABLET.ER PO SCH (08:51)
[2019-05-20] MEDS: Doxycycline 100 MG CAPSULE PO SCH (08:52)
[2019-05-20] MEDS: cephALEXin 500 MG CAPSULE PO SCH ×2 (08:52→12:09)
[2019-05-20] MEDS: Furosemide 20 MG TABLET PO SCH (08:52)
[2019-05-20] MEDS: predniSONE 20 MG TABLET PO SCH (08:52)
[2019-05-20] MEDS: BuPROPion XL (24 HR) 150 MG TABLET PO SCH (08:52)
[2019-05-20] MEDS: FLUoxetine 20 MG CAPSULE PO SCH (08:52)
[2019-05-20] MEDS: Miconazole 2% ointment 141 APPL/141 GM TUBE TP SCH (08:53)
[2019-05-20] MEDS ORDERED: Insulin DETEMIR 100 UNIT/ML X5UNITS SQ SCH (09:00)
[2019-05-20 11:46] VITALS: BP 154/53
== END 2019-05-20 15:10 | disposition other institution (70) | DRG 603 ==
LOC: 3BNU 06:02 → EMEROOARM 06:02 → 3ANU 09:09 → SUATTDRO 05-16 10:52 → UNDODISIN 05-20 13:35
PROVIDERS: ADMIT Internal Medicine Nephrology; ATTEND Student in an Organized Health Care Education/Training Program